=== PATIENT | male | born 1960 | race Caucasian/White ===

== ENCOUNTER 2021-08-28 15:08 | Outpatient (CLI) | payer BC, SELFPAY ==
--- NOTE | ~2021-08-28 | CT_ITS ---
EXAMINATION: CT abdomen pelvis w con DATE: 08/28/2021 15:45 INDICATION: Unspecified abdominal pain. TECHNIQUE: Computed tomography (CT) of the abdomen and pelvis was performed with 100 cc Omnipaque 350 intravenous contrast. The dose-length product was 636.56 mGy-cm. Automated exposure control and iter ative reconstruction technique were employed. COMPARISON: CT dated 09/08/2019. FINDINGS: Lung bases are unremarkable. Heart size is normal. No significant pleural or pericardial ef fusion. No significant vascular abnormality. No lymphadenopathy. The liver, spleen, pancreas, adrenal glands and kidneys are unremarkable. Gallbladder is present. Non obstructive bowel gas pattern. Normal appendix. No abnormal pelvic masses or fluid collections. Moder ate lower lumbar spondylosis. Moderate osteoarthritis of the hips. IMPRESSION: 1. No acute abdominal abnormality. Reviewed, dictated and finalized at location B. TIC FABRICATOR
[2021-08-28 15:33] LABS: Estimated Glomerular Filt Rate > 60
== END 2021-08-28 15:09 | disposition home or self-care (01) ==
LOC: ANHIMG 15:12
PROVIDERS: PCP Family Medicine; Visit Provider Physician Assistant
DX: R10.9 Unspecified abdominal pain (principal)
CPT/HCPCS: 74177; Q9967

== ENCOUNTER 2021-08-28 16:21 | Outpatient (CLI) | payer BC, SELFPAY ==
[2021-08-28 16:37] LABS: Basophils Percent Auto 0.5 % (0.2-1.2); Eosinophils Absolute Auto 0.2 K/mm3 (0-0.3); Eosinophils Percent Auto 2.7 % (0-4.4); Hematocrit 47.8 % (42.0-52.0); Hemoglobin 16.2 g/dL (14.0-18.0); Immature Granulocyte Absolute 0.02 K/mm3 (0.00-0.031); Immature Granulocyte Percent A 0.3 % (0-0.5); Lymphocytes Absolute Auto 1.76 K/mm3 (0.9-3.2); Lymphocytes Percent Auto 26.5 % (18.3-44.2); Mean Corpuscular HGB Conc 33.9 g/dl (32-36); Mean Corpuscular Hemoglobin 30.8 pg (26-34); Mean Corpuscular Volume 90.9 fl (80-100); Mean Platelet Volume 9.7 fl (7.4-10.4); Monocytes Absolute Auto 0.5 K/mm3 (0.1-0.6); Monocytes Percent Auto 7.4 % (2.6-8.5); Neutrophils Absolute Auto 4.2 K/mm3 (1.3-6.7); Neutrophils Percent Auto 62.6 % (45.5-73.1); Platelet Count Result 226 k/mm3 (150-375); Red Blood Count 5.26 M/mm3 (4.6-6.20); Red Cell Distribution Width 12.1 % (11.5-14.5); White Blood Count 6.6 K/mm3 (4.5-10.0)
[2021-08-28 16:50] LABS: Alanine Aminotransferase 30 U/L (4-50); Albumin Level 4.6 g/dL (3.5-5.1); Alkaline Phosphatase 73 U/L (38-126); Amylase 95 U/L (30-110); Anion Gap 7 mmol/L (8-16); Aspartate Amino Transferase 35 U/L (17-59); Bilirubin,Total 0.7 mg/dL (0.2-1.3); Blood Urea Nitrogen 18 mg/dL (9-20); Calcium 9.4 mg/dL (8.4-10.2); Carbon Dioxide 27 mmol/L (22-30); Chloride 99 mmol/L (98-107); Estimated Glomerular Filt Rate > 60; Glucose 91 mg/dL (65-110); Lipase 68 U/L (23-300); Potassium 4.3 mmol/L (3.4-5.0); Sodium 133 mmol/L (137-145)
== END 2021-08-28 16:22 | disposition home or self-care (01) ==
LOC: ANHLAB 16:23
PROVIDERS: PCP Family Medicine; Visit Provider Physician Assistant
DX: R10.9 Unspecified abdominal pain (principal)
CPT/HCPCS: 36415; 80053; 82150; 83690; 85025

== ENCOUNTER 2024-11-08 12:30 | Outpatient (CLI) | payer BC, SELFPAY ==
--- OUTSIDE RECORDS SUMMARY | 2024-11-08 12:33 | XMS_ITS | Patient Health Summary ---
Author Organization [facility] Address [address] [place] [address] Care Team Providers Care Mental Health Practitioner Name Role Phone Provider, No Pcp Primary Care Provider Unavailab le Note from [facility],non-owned Affiliates and Associated Physician Practices is amultiple site organization consisting of ambulatory clinics and hospital sitesin [place], [place], [place] and [place]. This disclosure is being madepursuant to the Care Everywhere program and may not contain all information available regarding this patient. Last updated 18.[facility] Allergies No known active allergies Medications * Be aware that medications may not be up to date on this document. Alwaysverify current medications with the patient. * diclofenac sodium EC (Voltaren) 75 MG tablet(Started 07/03/2024) Take 1 tablet by mouth twice daily 5 refills by 07/03/2025 * aspirin EC (Ecotrin) 81 MG tablet Take 1 (one) tablet by mouth once daily * multivitamin daily tablet Take 1 (one) tablet by mouth daily with food Active Problems Problem Noted Date Diagnosed Date Loose right total knee arthroplasty 10/02/2024 Presence of both artificial knee joints 01/26/20 24 Primary osteoarthritis of both knees 08/04/2022 Social History Tobacco Use Types Packs/Day Years Used Date Smoking Tobacco: Never Smokeless Tobacco: Never Tobacco Cessation:Counseling Given: Not Answered Alcohol Use Standard Drinks/Week Comments Yes 0 (1 standard drink = 0.6 oz pur e alcohol) casual drinker OASIS D0700: Social Isolation Answer Da te Recorded Frequency of experiencing loneliness or isolatio n Never 09/23/2023 OASIS A1250: Transportation Answer Date Recorded Lack of Transportation (Medical) No 09/23/2023 Lack of Transportation (Non-Medical) No 09/23/2023 Patient Unable or Declines to Respond No 09/23/2023 OASIS B1300: Health Literacy Answer Bi e Recorded Frequency of needing help to read materials from doctor or pharmacy Never 09/23/2023 AUDIT-C Answer Date Recorded Q1: How often do you have a drink containing alc ohol? 2-4 times a month 08/30/2023 Q2: How many drinks containi ng alcohol do you have on a typical day when you are drinking? 3 or 4 08/30/2023 Q3: How often do you have si x or more drinks on one occasion? Never 08/30/2023 Overall Financial Resource Strain (CARDIA) Answe r Date Recorded How hard is it for you to pa y for the very basics like food, housing, medical care, and heating? Not hard at all 08/31/2023 PHQ-2 Answer Date Recorded Patient Health Questionnaire-2 Score 3 09/15/2024 [facility] - Occupational Stress Questionnaire Answer Date Recorded Do you feel stress - tense, restless, nervous, or anxious, or unable to sleep at night because your mind is troubled all the time - these days? Not at all 08/31/2023 Hunger Vital Sign Answer Date Recorded Within the past 12 months, y ou worried that your food would run out before you got the money to buy more. Never true 08/31/20 Within the past 12 months, t he food you bought just didn't last and you didn't have money to get more. Never true 08/31/2023 PRAPARE - Transportation Answer Date Re corded In the past 12 months, has l ack of transportation kept you from medical appointments or from getting medications? No 01/2023 In the past 12 months, has l ack of transportation kept you from meetings, work, or from getting things needed for daily living? No 08/31/2023 Housing Stability Vital Sign Answer Bi e Recorded In the last 12 months, was t here a time when you were not able to pay the mortgage or rent on time? No 08/31/2023 In the last 12 months, how many places have you lived? 1 08/31/2023 In the last 12 months, was t here a time when you did not have a steady place to sleep or slept in a longterm (including now)? No 08/31/2023 Sex and Gender Information Value Date Recorded Sex Assigned at Not on file Gender Identity Not on file Sexual Orientation Not on file Last Filed Vital Signs Vital Sign Reading Time Taken Comments Blood Pressure 145/89 10/10/2024 10:52 AM EXERCISE RIDER Pulse 78 10/10/2024 10:45 AM EXERCISE RIDER Temperature 36.9 C (98.4 F) 10/10/2024 10:39 AM EXERCISE RIDER Respiratory Rate 16 09/23/2023 9:02 AM EXERCISE RIDER Oxygen Saturation 98% 10/10/2024 10:45 AM EXERCISE RIDER Inhaled Oxygen Concentration - - Weight 99.3 kg (219 lb) 10/10/2024 10:39 AM EXERCISE RIDER Height 181.6 cm (5' 11.5 ) 10/10/2024 10:[address] Body Mass Index 30.12 10/10/2024 10:39 AM EXERCISE RIDER Medical Devices Implanted Type Area Museum Director Device Identifier Shelf Expiration Date Model / Serial / Lot Tray Tib 79mm Kn Cocr I Beam Implanted:Qty: 1 on 04/05/2023 by Alvin Solis MD at [facility] Left: Knee [employer] 02/02/2033 [id number] / / [id number] Cmpnt Fem Kn Lt Cr Cmnt Prm Vngrd Intlk Implanted:Qty: 1 on 04/05/2023 by Alvin Solis MD at [facility] Left: Knee [employer] 10/24/2032 [id number] / / [id number] Cmpnt Ptlr Std 31mm 3 Pg Kn Ser A Implanted:Qty: 1 on 04/05/2023 by Alvin Solis MD at [facility] Left: Knee [employer] 01/08/2024 [id number] / / [id number] Cmnt Bone Plc R 40gm Grn Implanted:Qty: 2 on 04/05/2023 by Alvin Solis MD at [facility] Left: Knee [employer] 08/26/2025 [id number] / / [id number] Brng [id number] Vngrd Arcm Kn Ant Stab Implanted:Qty: 1 on 04/05/2023 by Alvin Solis MD at [facility] Left: Knee [employer] 03/11/2028 [id number] / / [id number] Brng [id number] Vngrd Arcm Kn Ant Stab Implanted:Qty: 1 on 08/30/2023 by Alvin Solis MD at [facility] Right: Knee [employer] 06/27/2028 [id number] / / [id number] Cmnt Bone Plc R 40gm Grn Implanted:Qty: 2 on 08/30/2023 by Alvin Solis MD at [facility] Right: Knee [employer] 11/24/2025 [id number] / / [id number] Cmpnt Fem Kn Rt Cr Cmnt Prm Vngrd Intlk 75 Mm Implanted:Qty: 1 on 08/30/2023 by Alvin Solis MD at [facility] Right: Knee [employer] 02/11/2033 [id number] / / [id number] Tray Tib 79mm Kn Cocr I Beam Implanted:Qty: 1 on 08/30/2023 by Alvin Solis MD at [facility] Right: Knee [employer] 06/11/2033 [id number] / / [id number] Cmpnt Ptlr Std 31mm 3 Pg Kn Ser A Implanted:Qty: 1 on 08/30/2023 by Alvin Solis MD at [facility] Right: Knee [employer] 06/22/2028 [id number] / / [id number] Procedures * CBC W AUTO DIFFERENTIAL(Performed 10/10/2024) Performed for Preoperative examination * COMPREHENSIVE METABOLIC PANEL(Performed 10/10/2024) Performed for Preoperative examination * ERYTHROCYTE SEDIMENTATION RATE(Performed 09/16/2024) Performed for Presence of both artificial knee joints * C-REACTIVE PROTEIN(Performed 09/16/2024) Performed for Presence of both artificial knee joints * XR KNEE BILAT 3VW(Performed 09/15/2024) Performed for Presence of both artificial knee joints * XR KNEE RIGHT 3VW(Performed 10/25/2023) Performed for Aftercare following right knee joint replacement surgery * XR KNEE LEFT 3VW(Performed 09/28/2023) Performed for Postoperative pain * WA TOTAL KNEE REPLACEMENT(Performed 08/30/2023) * CBC W AUTO DIFFERENTIAL(Performed 07/28/2023) Performed for Preop examination * XR KNEE LEFT 3VW(Performed 05/11/2023) Performed for Aftercare following left knee joint replacement surgery * NEURAXIAL BLOCK(Performed 04/05/2023) * WA TOTAL KNEE REPLACEMENT(Performed 04/05/2023) * CBC W AUTO DIFFERENTIAL(Performed 03/05/2023) Performed for Preoperative examination * COMPREHENSIVE METABOLIC PANEL(Performed 03/05/2023) Performed for Preoperative examination * XR KNEE BILAT 3VW(Performed 08/03/2022) Performed for Pain in both knees, unspecified chronicity Results * CBC W AUTO DIFFERENTIAL (10/10/2024 10:38 AM EXERCISE RIDER) Only the most recent of3 resultswithin the time period is included. WBC 6.9 4.0 - 10.7 x10E9/L 10/10/2024 10:52 AM EXERCISE RIDER [facility] RBC Count 4.86 4.30 - 5.80 x10E12/L 10/10/2024 10:52 AM EXERC[facility] R[facility]ER [facility] Hemoglobin 14.5 13.3 - 17.5 g/dL 10/10/2024 10:52 AM EX[facility]ER [facility] Hematocrit 43.9 38.7 - 51.1 % 10/10/2024 10:52 AM EXERC[facility] R[facility]ER [facility] MCV 90.3 80.0 - 98.0 fL 10/10/2024 10:52 AM EXERC[facility] R[facility]ER [facility] MCH 29.8 26.7 - 33.6 pg 10/10/2024 10:52 AM EXERC[facility] R[facility]ER [facility] MCHC 33.0 31.7 - 36.3 g/dL 10/10/2024 10:52 AM EXERCISE RIDER [facility] RDW-CV 12.0 11.3 - 14.8 % 10/10/2024 10:52 AM EXERC[facility] RIDER [facility] Platelet Count 259 150 - 420 x10E9/L 10/10/2024 10:52 AM EXERC[facility] RIDER [facility] MPV 9.8 7.8 - 11.4 fL 10/10/2024 10:[address] [facility] Neutrophil % 64.0 41.0 - 74.0 % 10/10/2024 10:[address] [facility] Lymphocyte % 25.2 17.0 - 47.0 % 10/10/2024 10:[address] [facility] Monocyte % 8.2 3.0 - 11.0 % 10/10/2024 10:[address] [facility] Eosinophil % 1.7 0.0 - 7.0 % 10/10/2024 10:[address] [facility] Basophil % 0.6 0.0 - 1.6 % 10/10/2024 10:[address] [facility] Immature Granulocytes % 0.3 0.0 - 1.0 % 10/10/2024 10:[address] [facility] Neutrophil Absolute 4.44 1.60 - 7.50 x10E9/L 10/10/2024 10:[address] [facility] Lymphocyte Absolute 1.75 1.00 - 4.40 x10E9/L 10/10/2024 10:[address] [facility] Monocyte Absolute 0.57 0.15 - 1.00 x10E9/L 10/10/2024 10:[address] [facility] Eosinophil Absolute 0.12 0.00 - 0.60 x10E9/L 10/10/2024 10:[address] [facility] Basophil Absolute 0.04 0.00 - 0.13 x10E9/L 10/10/2024 10:[address] [facility] Blood BLOOD SPECIMEN / Unknown Venipuncture / Unknown 10/10/2024 10:38 AM [facility] 10/10/2024 10:47 AM [facility] Aaron Yarbrough AUTOMOTIVE SALES MANAGER-STRAIGHTEDGE MACHINE OPERATOR HELPER LAB - HEMATOLOGY ORDERABLES [facility] [address] [place] [address] * (ABNORMAL) COMPREHENSIVE METABOLIC PANEL (10/10/2024 10:38 AM [facility]) Only the most recent of2 resultswithin the time period is included. [facility] Glucose 97 70 - 99 mg/dL 10/10/2024 11:[address] [facility] Sodium 140 136 - 145 mmol/L 10/10/2024 11:[address] [facility] Potassium 4.4 3.5 - 5.1 mmol/L 10/10/2024 11:[address] [facility] Chloride 108(H) 98 - 107 mmol/L 10/10/2024 11:[address] [facility] CO2 26 22 - 29 mmol/L 10/10/2024 11:[address] [facility] Calcium 9.2 8.4 - 10.4 mg/dL 10/10/2024 11:[address] [facility] Anion Gap 6 6 - 16 mmol/L 10/10/2024 11:[address] [facility] BUN 16 7 - 26 mg/dL 10/10/2024 11:[address] [facility] Creatinine 0.93 0.72 - 1.25 mg/dL 10/10/2024 11:[address] [facility] Alkaline Phosphatase 95 40 - 150 U/L 10/10/2024 11:[address] [facility] ALT 16 0 - 55 U/L 10/10/2024 11:[address] [facility] AST 19 5 - 34 U/L 10/10/2024 11:[address] [facility] Protein Total 7.2 6.4 - 8.3 gm/dL 10/10/2024 11:[address] [facility] Albumin 3.8 3.4 - 5.0 gm/dL 10/10/2024 11:[address] [facility] Bilirubin Total 0.5 0.2 - 1.2 mg/dL 10/10/2024 11:[address] [facility] eGFR by CKD-EPI >90 >=90 mL/min/1.7 3 m2 10/10/2024 11:[address] [facility] Blood BLOOD SPECIMEN / Unknown Venipuncture / Unknown 10/10/2024 10:38 AM [facility] 10/10/2024 10:47 AM [facility] Aaron Yarbrough AUTOMOTIVE SALES MANAGER-STRAIGHTEDGE MACHINE OPERATOR HELPER LAB - CHEMISTRY ORDERABLES [facility] [address] [place] [address] * C-REACTIVE PROTEIN (09/16/2024 10:28 AM EXERCISE RIDER) C-Reactive Protein 2 0 - 10 mg/L [facility] ACCOUNT BILL Blood BLOOD SPECIMEN / Unknown 09/16/2024 10:28 AM EXERCISE RIDER 09/16/2024 Narrative [facility] ACCOUNT BILL - 09/17/2024 7:05 AM EXERCISE RIDER Performed at: - [address] [id number] [employer] Novelty: Bladimir Keys PhD, Phone: [phone] Alvin Solis MD LAB - CHEMISTRY ORDE RABLES Performing Organization Address [facility] Co de Phone Number [facility] ACCOUNT BILL [address] [place] [address] * ERYTHROCYTE SEDIMENTATION RATE (09/16/2024 10:28 AM EXERCISE RIDER) Erythrocyte Sedimentation Rate Westergren 11 0 - 30 mm/hr [facility] ACCOUNT BILL Blood BLOOD SPECIMEN / Unknown 09/16/2024 10:28 AM EXERCISE RIDER 09/16/2024 Narrative [facility] ACCOUNT BILL - 09/17/2024 7:05 AM EXERCISE RIDER Performed at: [facility] [id number] [employer]: Bladimir Keys PhD, Phone: [phone] Alvin Solis MD LAB - HEMATOLOGY ORD ERABLES Performing Organization Address City/[facility]/ZIP Co de Phone Number [facility] ACCOUNT BILL [address] [place] [address] * XR Knee Bilat 3Vw (09/15/2024 12:03 PM EXERCISE RIDER) Only the most recent of2 resultswithin the time period is included. Narrative [facility] [address] - 09/15/2024 12:03 PM EXERCISE RIDER Please see progress note in Epic for results. Alvin Solis MD DIAGNOSTIC IMAGING O RDERABLES Performing Organization Address City/[facility]/ZIP Co de Phone Number [facility] [address] * XR KNEE RIGHT 3VW (10/25/2023 9:56 AM EXERCISE RIDER) Narrative [facility] [address] - 10/25/2023 9:56 AM EXERCISE RIDER Please see progress note in Epic for results. Jensen ARREOLA C IMAGING ORDERABLES Performing Organization Address [facility] Co de Phone Number [facility] [address] * XR KNEE LEFT 3VW (09/28/2023 11:18 AM EXERCISE RIDER) Only the most recent of2 resultswithin the time period is included. Narrative [facility] [address] - 09/28/2023 11:18 AM EXERCISE RIDER Please see progress note in Epic for results. Alvin Solis MD DIAGNOSTIC IMAGING O RDAGUSTÍN Performing Organization Address [facility] Co de Phone Number [facility] [address] * Neuraxial Block (04/05/2023 8:22 AM CDT) Narrative Baron Daniel MD - 04/05/2023 8:22 AM CDT Marquis Espana APRN-CRNA 04/05/2023 8:53 AM Neuraxial Block Note Pre-Procedure: Procedure Name: Neuraxial Block Patient Location: OR Monitors: BP and continuous pluse ox Patient Condition: sedated, meaningful contact maintained throughout procedure Procedure: Block Type: Spinal Prep: Betadine Approach: midline Spinal Block: Needle Type: spinal needle Needle Gauge: 25 Needle Length: 90 mm Placement Site: L3-4 Number of Attempts: 2 Degree of difficulty: none Procedure Tolerance: tolerated well Staff: Anesthesia Provider: Marquis Espana APRN-BRYOLOGIST - performed the procedure Baron Daniel MD GENERAL ANESTHESIA O CORTE[facility] Care Teams Mental Health Practitioner Relationship Specialty Start Date End Date Provider, No Pcp PCP - General 10/10/24
--- OUTSIDE RECORDS SUMMARY | 2024-11-08 12:33 | XMS_ITS | Referral Summary ---
Author Organization [facility] Address [address] [place] [address] Care Team Providers Care Wildlife Rehabilitator Name Role Phone Provider, No Pcp Primary Care Provider Unavailab le Source Comments [facility],non-owned Affiliates and Associated Physician Practices is amultiple site organization consisting of ambulatory clinics and hospital sitesin [place], [place], [place] and [place]. This disclosure is being madepursuant to the Care Everywhere program and may not contain all information available regarding this patient. Last updated 18.[facility] Encounters Date Type Department Care Team Description 10/10/2024 Travel 10/10/2024 10:21 AM COOKIE PADDER - 10/10/2024 11:59 PM COOKIE PADDER Hospital [facility] [address] [place] [address] Alvin Solis MD Discharge Disposition: Home or Self Care 10/09/2024 Travel 09/25/2024 Telephone [facility] [id number] [place] [address], [facility] [address] [place] [phone] Alvin Solis MD Surgery Scheduling 09/15/2024 11:55 AM COOKIE PADDER Ancillary Procedure [facility] - Radiology [address] [place] [phone] Alvin Solis MD Presence of both artificial knee joints 09/15/2024 11:30 AM COOKIE PADDER Office Visit [facility] [id number] [place] [address], [address] [place] [phone] Alvin Solis MD 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 Alwaysverify current medications with the patient. Medication Sig Dispensed Refills Start Date End Date Status diclofenac sodium EC (Voltaren) 75 MG tablet Take 1 tablet by mouth twice daily 60 tablet 5 07/03/2024 Active aspirin EC (Ecotrin) 81 MG tablet Take 1 (one) tablet by mouth once daily Active multivitamin daily tablet Take 1 (one) tablet by mouth daily with food Active Active Problems Problem Noted Date Diagnosed Date [...] Recorded Patient Health Questionnaire-2 Score 3 09/15/2024 [facility] Occupat ional Health - Occupational Stress [...] money to buy more. Never true 08/31/20 23 Within the past 12 months, t he [...] place to sleep or slept in a alf (including now)? No 08/31/2023 Sex and Gender Information Value Date Recorded Sex Assigned at Not on file Gender Identity Not on file Sexual Orientation Not on file Last Filed Vital Signs Vital Sign Reading Time Taken Comments Blood Pressure 145/89 10/10/2024 10:52 AM COOKIE PADDER Pulse 78 10/10/2024 10:45 AM COOKIE PADDER Temperature 36.9 C (98.4 F) 10/10/2024 10:39 AM COOKIE PADDER Respiratory Rate 16 09/23/2023 9:02 AM COOKIE PADDER Oxygen Saturation 98% 10/10/2024 10:45 AM COOKIE PADDER Inhaled Oxygen Concentration - - Weight 99.3 kg (219 lb) 10/10/2024 10:39 AM COOKIE PADDER Height 181.6 cm (5' 11.5 ) 10/10/2024 10:[address] Body Mass Index 30.12 10/10/2024 10:39 AM COOKIE PADDER Functional Status Functional Status Response Date of Assess ment Is person deaf or have serious hearing difficult y? No 08/30/2023 Is person blind or have serious difficulty seein g? No 08/30/2023 Does person have serious dif ficulty walking/climbing stairs? No 08/30/2023 Does person have difficulty dressing/bathing? No 08/30/2023 Does person have difficulty doing errands alone? No 08/30/2023 Plan of Treatment Upcoming Encounters Date Type Department Care Team (Latest Contact Info) Description 11/15/2024 11:00 AM COOKIE PADDER Procedure visit [facility] [address] [place] [phone] 11/15/2024 12:08 PM COOKIE PADDER Hospital Encounter [facility] - Perioperative Surgery [address] [place] [address] [place] [address] [address] Surgery General 11/15/2024 12:08 PM COOKIE PADDER - 11/15/2024 3:04 PM COOKIE PADDER Surgery [facility] - Perioperative Surgery [address] [place] [address] [place] [address] [address] [address] RIGHT LIMITRED REVISION TIBIA 12/07/2024 11:40 AM CDT Office Visit [facility] [address] [place] [phone] Eduardo Betancourt PA-C [address] [place] [phone] 12/28/2024 3:30 PM CDT Office Visit [facility] [address] [place] [phone] [place] [address] [address] [address] Scheduled Procedures Name Priority Associated Diagnoses Date/Ti me ARTHROPLASTY TOTAL KNEE REVISION 11/15/2024 12:08 PM [facility] Medical Devices Implanted Type Area Public Relations Consultant Device Identifier Shelf Expiration Date Model / Serial / Lot Tray Tib 79mm Kn Cocr I Beam Implanted:Qty: 1 on 04/05/2023 by Alvin Solis MD at [facility] Left: Knee [employer] 02/02/2033 [id number] / / [id number] Cmpnt Fem Kn Lt Cr Cmnt Prm Vngrd Intlk Implanted:Qty: 1 on 04/05/2023 by Alvin Solis MD at [facility] Left: Knee [employer] 10/24/2032 [id number] / / [id number] Cmpnt Ptlr Std 31mm 3 Pg Kn Ser A Implanted:Qty: 1 on 04/05/2023 by Alvin Solis MD at [facility] Left: Knee [employer] 01/08/2024 [id number] / / [id number] Cmnt Bone Plc R 40gm Grn Implanted:Qty: 2 on 04/05/2023 by Alvin Solis MD at [facility] Left: Knee [employer] 08/26/2025 [id number] / / [id number] Brng 32lom27pw Vngrd Arcm Kn Ant Stab Implanted:Qty: 1 on 04/05/2023 by Alvin Solis MD at [facility] Left: Knee [employer] 03/11/2028 [id number] / / [id number] Brng 90noh83io Vngrd Arcm Kn Ant Stab Implanted:Qty: 1 on 08/30/2023 by Alvin Solis MD at [facility] Right: Knee [employer] 06/27/2028 [id number] / / [id number] Cmnt Bone Plc R 40gm Grn Implanted:Qty: 2 on 08/30/2023 by Alvin Solis MD at [facility] Right: Knee [employer] 11/24/2025 [id number] / / [id number] Cmpnt Fem Kn Rt Cr Cmnt Prm Vngrd Intlk 75 Mm Implanted:Qty: 1 on 08/30/2023 by Alvin Solis MD at [facility] Right: Knee [employer] 02/11/2033 [id number] / / [id number] Tray Tib 79mm Kn Cocr I Beam Implanted:Qty: 1 on 08/30/2023 by Alvin Solis MD at [facility] Right: Knee [employer] 06/11/2033 [id number] / / [id number] Cmpnt Ptlr Std 31mm 3 Pg Kn Ser A Implanted:Qty: 1 on 08/30/2023 by Alvin Solis MD at [facility] Right: Knee [employer] 06/22/2028 [id number] / / [id number] Procedures Procedure Name Priority Date/Time Associated Diagnosis Comments CBC W AUTO DIFFERENTIAL STAT 10/10/2024 10:38 AM COOKIE PADDER Preoperative examination COMPREHENSIVE METABOLIC PANEL STAT 10/10/2024 10:38 AM COOKIE PADDER Preoperative examination ERYTHROCYTE SEDIMENTATION RATE Routine 09/16/2024 10:28 AM COOKIE PADDER Presence of both artificial knee joints C-REACTIVE PROTEIN Routine 09/16/2024 10 :28 AM COOKIE PADDER Presence of both artificial knee joints XR KNEE BILAT 3VW Routine 09/15/2024 12: 03 PM COOKIE PADDER Presence of both artificial knee joints from Last 3 Months Results * CBC W AUTO DIFFERENTIAL (10/10/2024 10:38 AM COOKIE PADDER) WBC 6.9 4.0 - 10.7 x10E9/L 10/10/2024 10:52 AM COOKIE PADDER [facility] RBC Count 4.86 4.30 - 5.80 x10E12/L 10/10/2024 10:52 AM COOKIE PADDER [facility] Hemoglobin 14.5 13.3 - 17.5 g/dL 10/10/2024 10:52 AM COOKIE PADDER [facility] Hematocrit 43.9 38.7 - 51.1 % 10/10/2024 10:52 AM COOKIE PADDER [facility] MCV 90.3 80.0 - 98.0 fL 10/10/2024 10:52 AM [facility] MCH 29.8 26.7 - 33.6 pg 10/10/2024 10:52 AM [facility] MCHC 33.0 31.7 - 36.3 g/dL 10/10/2024 10:52 AM [facility] RDW-CV 12.0 11.3 - 14.8 % 10/10/2024 10:52 AM [facility] Platelet Count 259 150 - 420 x10E9/L 10/10/2024 10:52 AM [facility] MPV 9.8 7.8 - 11.4 fL 10/10/2024 10:52 AM [facility] Neutrophil % 64.0 41.0 - 74.0 % 10/10/2024 10:52 AM [facility] Lymphocyte % 25.2 17.0 - 47.0 % 10/10/2024 10:52 AM [facility] Monocyte % 8.2 3.0 - 11.0 % 10/10/2024 10:52 AM [facility] Eosinophil % 1.7 0.0 - 7.0 % 10/10/2024 10:52 AM [facility] Basophil % 0.6 0.0 - 1.6 % 10/10/2024 10:52 AM [facility] Immature Granulocytes % 0.3 0.0 - 1.0 % 10/10/2024 10:52 AM [facility] Neutrophil Absolute 4.44 1.60 - 7.50 x10E9/L 10/10/2024 10:52 AM [facility] Lymphocyte Absolute 1.75 1.00 - 4.40 x10E9/L 10/10/2024 10:52 AM [facility] Monocyte Absolute 0.57 0.15 - 1.00 x10E9/L 10/10/2024 10:52 AM [facility] Eosinophil Absolute 0.12 0.00 - 0.60 x10E9/L 10/10/2024 10:52 AM [facility] Basophil Absolute 0.04 0.00 - 0.13 x10E9/L 10/10/2024 10:52 AM [facility] Blood BLOOD SPECIMEN / Unknown Venipuncture / Unknown 10/10/2024 10:38 AM [facility] 10/10/2024 10:47 AM [facility] Aaron Yarbrough REGIONAL ENVIRONMENTAL MANAGER-PHOTOGRAPHIC PROCESSOR LAB - HEMATOLOGY ORDERABLES [facility] [address] [place] [address] * (ABNORMAL) COMPREHENSIVE METABOLIC PANEL (10/10/2024 10:38 AM [facility]) Glucose 97 70 - 99 mg/dL 10/10/2024 11:07 AM [facility] Sodium 140 136 - 145 mmol/L 10/10/2024 11:07 AM [facility] Potassium 4.4 3.5 - 5.1 mmol/L 10/10/2024 11:07 AM [facility] Chloride 108(H) 98 - 107 mmol/L 10/10/2024 11:07 AM [facility] CO2 26 22 - 29 mmol/L 10/10/2024 11:07 AM [facility] Calcium 9.2 8.4 - 10.4 mg/dL 10/10/2024 11:07 AM [facility] Anion Gap 6 6 - 16 mmol/L 10/10/2024 11:07 AM [facility] BUN 16 7 - 26 mg/dL 10/10/2024 11:07 AM [facility] Creatinine 0.93 0.72 - 1.25 mg/dL 10/10/2024 11:07 AM [facility] Alkaline Phosphatase 95 40 - 150 U/L 10/10/2024 11:07 AM [facility] ALT 16 0 - 55 U/L 10/10/2024 11:07 AM [facility] AST 19 5 - 34 U/L 10/10/2024 11:07 AM [facility] Protein Total 7.2 6.4 - 8.3 gm/dL 10/10/2024 11:07 AM [facility] Albumin 3.8 3.4 - 5.0 gm/dL 10/10/2024 11:07 AM [facility] Bilirubin Total 0.5 0.2 - 1.2 mg/dL 10/10/2024 11:07 AM [facility] eGFR by CKD-EPI >90 >=90 mL/min/1.7 3 m2 10/10/2024 11:07 AM COOKIE PADDER [facility] Blood BLOOD SPECIMEN / Unknown Venipuncture / Unknown 10/10/2024 10:38 AM COOKIE PADDER 10/10/2024 10:47 AM COOKIE PADDER Aaron Vincent Zenon REGIONAL ENVIRONMENTAL MANAGER-PHOTOGRAPHIC PROCESSOR LAB - CHEMISTRY ORDERABLES [facility] [address] [place] [id number] * C-REACTIVE PROTEIN (09/16/2024 10:28 AM COOKIE PADDER) C-Reactive Protein 2 0 - 10 mg/L [facility] ACCOUNT BILL Blood BLOOD SPECIMEN / Unknown 09/16/2024 10:28 AM COOKIE PADDER 09/16/2024 Narrative [facility] ACCOUNT BILL - 09/17/2024 7:05 AM COOKIE PADDER Performed at: - [facility] [address] [id number] [employer] Associate: Bladimir Keys PhD, Phone: [phone] Alvin Solis MD LAB - CHEMISTRY ORDE SOL Performing Organization Address City/[facility] Co de Phone Number [facility] ACCOUNT BILL [address] [place] [address] * ERYTHROCYTE SEDIMENTATION RATE (09/16/2024 10:28 AM COOKIE PADDER) Erythrocyte Sedimentation Rate Westergren 11 0 - 30 mm/hr [facility] ACCOUNT BILL Blood BLOOD SPECIMEN / Unknown 09/16/2024 10:28 AM COOKIE PADDER 09/16/2024 Narrative [facility] ACCOUNT BILL - 09/17/2024 7:05 AM COOKIE PADDER Performed at: - [facility] [address] [id number] [employer] Associate: Bladimir Keys PhD, Phone: [phone] Alvin Solis MD LAB - HEMATOLOGY ORD ERABLES [facility] ACCOUNT BILL [address] [place] [address] * XR Knee Bilat 3Vw (09/15/2024 12:03 PM COOKIE PADDER) Narrative [facility] [address] - 09/15/2024 12:03 PM COOKIE PADDER Please see progress note in Epic for results. Alvin Solis MD DIAGNOSTIC IMAGING O RDERABLES [facility] [place] [address] from Last 3 Months Advance Directives * Full Code (Latest Code Status on File) Date Activated Date Inactivated Comments 08/30/2023 12:23 PM 08/31/2023 2:11 PM * Full Code Date Activated Date Inactivated Comments 04/05/2023 11:33 AM 04/06/2023 3:04 PM Care Teams Wildlife Rehabilitator Relationship Specialty Start Date End Date Provider, No Pcp PCP - General 10/10/24
--- OUTSIDE RECORDS SUMMARY | 2024-11-08 12:33 | XMS_ITS | Clinical Summary ---
Author Organization [facility] Address [address] [place] [address] Care Team Providers Care X Ray Operator Name Role Phone Unavailable Primary Care Provider Unavailabl e Social History Tobacco Use Types Packs/Day Years Used Date Smoking Tobacco: Never Assessed Sex and Gender Information Value Date Recorded Sex Assigned at Not on file Legal Sex Male 5:42 PM CDT Gender Identity Not on file Sexual Orientation Not on file Plan of Treatment Health Maintenance Due Date Last Done Comments Colorectal Cancer Screening Colonoscopy (10 Years) 1961 Annual Physical 1964 Hepatitis C 1979 DTaP, Tdap and Td Vaccines ( 1 - Tdap) 1980 Zoster Vaccines (1 of 2) 2011 COVID-19 Vaccine ( - 2023-2 5 season) 2024 Influenza Adult (#1) 2024 RSV Immunization or 60+ Years (1 - 1-dose 75+ series) 2036 Meningococcal B Vaccine Aged Out No l onger eligible based on patient's age to complete this topic Meningococcal Vaccine Aged Out No cyndy chris eligible based on patient's age to complete this topic Pneumococcal Vaccine: Pediat rics (0 to 5 Years) and At-Risk Patients (6 to 64 Years) Aged Out No longer eligible b ased on patient's age to complete this topic RSV Immunizations Under 20 Months Aged Out No longer eligible based on patient's age to complete this topic
--- OUTSIDE RECORDS SUMMARY | 2024-11-08 12:33 | XMS_ITS | Clinical Summary ---
Author Organization [facility] Address [address] [place] [address] Care Team Providers Care Window Shade Estimator Name Role Phone Provider, No Pcp Primary Care Provider Unavailab le Source Comments [facility],non-owned Affiliates and Associated Physician Practices is amultiple site organization consisting of ambulatory clinics and hospital sitesin [place], [place], [place] and [place]. This disclosure is being madepursuant to the Care Everywhere program and may not contain all information available regarding this patient. Last updated [employer] [facility] Allergies No known active allergies Medications * [...] 24 Primary osteoarthritis of both knees 08/04/2022 Encounters Date Type Department Care Team Description 10/10/2024 10:21 AM RESIDENT CARE SUPERVISOR - 10/10/2024 11:59 PM RESIDENT CARE SUPERVISOR Hospital Encounter [facility] [address] [place] [address] Alvin Solis MD Discharge Disposition: Home or Self Care 10/10/2024 Travel 10/09/2024 Travel 09/25/2024 Telephone [facility] [id number] [place] [address], [address] [place] [phone] Alvin Solis MD Surgery Scheduling 09/15/2024 11:55 AM RESIDENT CARE SUPERVISOR Ancillary Procedure [facility] - Radiology [id number] [place] [phone] Alvin Solis MD Presence of both artificial knee joints 09/15/2024 11:30 AM RESIDENT CARE SUPERVISOR Office Visit [facility] [id number] [place] [address], [facility] [address] [place] [phone] Alvin Solis MD 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 No 08/31/2023 Sex and Gender Information Value Date Recorded Sex Assigned at Not on file Gender Identity Not on file Sexual Orientation Not on file Last Filed Vital Signs Vital Sign Reading Time Taken Comments Blood Pressure 145/89 10/10/2024 10:52 AM RESIDENT CARE SUPERVISOR Pulse 78 10/10/2024 10:45 AM RESIDENT CARE SUPERVISOR Temperature 36.9 C (98.4 F) 10/10/2024 10:39 AM RESIDENT CARE SUPERVISOR Respiratory Rate 16 09/23/2023 9:02 AM RESIDENT CARE SUPERVISOR Oxygen Saturation 98% 10/10/2024 10:45 AM RESIDENT CARE SUPERVISOR Inhaled Oxygen Concentration - - Weight 99.3 kg (219 lb) 10/10/2024 10:39 AM RESIDENT CARE SUPERVISOR Height 181.6 cm (5' 11.5 ) 10/10/2024 10:[address] Body Mass Index 30.12 10/10/2024 10:39 AM RESIDENT CARE SUPERVISOR Plan of Treatment Upcoming Encounters Date Type Department Care Team (Latest Contact Info) Description 11/15/2024 11:00 AM RESIDENT CARE SUPERVISOR Procedure visit [facility] [address] [facility] [address], [address] [place] [address] 11/15/2024 12:08 PM RESIDENT CARE SUPERVISOR Hospital Encounter [facility] - Perioperative Surgery [id number] [place] [address] [place] [address] [address] Surgery General 11/15/2024 12:08 PM RESIDENT CARE SUPERVISOR - 11/15/2024 3:04 PM RESIDENT CARE SUPERVISOR Surgery [facility] - Perioperative Surgery [address] [place] [address] [place] [address] [address] RIGHT LIMITRED REVISION TIBIA 12/07/2024 11:40 AM CDT Office Visit [facility] [address] [place] [phone] Eduardo Betancourt PA-C [id number] [place] [phone] 12/28/2024 3:30 PM CDT Office Visit [address], [address] [phone] [place] [address] [address] [address] Scheduled Procedures Name Priority Associated Diagnoses Date/Ti me ARTHROPLASTY TOTAL KNEE REVISION 11/15/2024 12:08 PM RESIDENT CARE SUPERVISOR Health Maintenance Due Date Last Done Comments COLOGUARD (AGES 45-75) - COL ON CA SCREENING 1961 COLON MONITORING 1961 COLONOSCOPY - COLON CA SCREENING 1961 CT COLONOGRAPHY - COLON CA SCREENING 1961 Colorectal Cancer Screening 1961 FIT - COLON CA SCREENING 1961 FLEX SIG - COLON CA SCREENING 1961 LIPID TESTING 1961 HIV SCREENING 1976 HEPATITIS C SCREENING 03/28/1979 DTAP/TDAP/TD VACCINES (1 - Tdap) 1980 PNEUMOCOCCAL VACCINE 50+ (1 of 1 - PCV) 2011 ZOSTER VACCINE (1 of 2) 2011 COVID-19 VACCINE (1 - 2023-2 5 season) 2024 INFLUENZA VACCINE (#1) 2024 DEPRESSION SCREENING 09/27/2024 11/25/2023 Respiratory Syncytial Virus (RSV) Vaccine Pt: or over 60 yrs (1 - 1-dose 75+ series) 2036 HEPATITIS B VACCINE Aged Out No longe r eligible based on patient's age to complete this topic HIB VACCINE Aged Out No longer eligi ble based on patient's age to complete this topic HPV VACCINE Aged Out No longer eligi ble based on patient's age to complete this topic MENINGOCOCCAL (Group B) VACCINE Aged Out No longer eligible based on patient's age to complete this topic MENINGOCOCCAL VACCINE Aged Out No cyndy chris eligible based on patient's age to complete this topic Medical Devices Implanted Type Area Third Steel Pourer Device Identifier Shelf Expiration Date Model / Serial / Lot Tray Tib 79mm Kn Cocr I Beam Implanted:Qty: 1 on 04/05/2023 by Alvin Solis MD at [facility] Left: Knee [employer] 02/02/2033 [id number] / / [id number] Cmpnt Fem Kn Lt Cr Cmnt Prm Vngrd Intlk Implanted:Qty: 1 on 04/05/2023 by Alvin Solis MD at [facility] Left: Knee [employer] 10/24/2032 [id number] / / [id number] Cmpnt Ptlr Std 31mm 3 Pg Kn Ser A Implanted:Qty: 1 on 04/05/2023 by Alvin Solis MD at [facility] Left: Knee [employer] 01/08/2024 [id number] / / [id number] Cmnt Bone Plc R 40gm Grn Implanted:Qty: 2 on 04/05/2023 by Alvin Solis MD at [facility] Left: Knee [employer] 08/26/2025 [id number] / / [id number] Brng [id number] Vngrd Arcm Kn Ant Stab Implanted:Qty: 1 on 04/05/2023 by Alvin Solis MD at [facility] Left: Knee [employer] 03/11/2028 [id number] / / [id number] Brng [id number] Vngrd Arcm Kn Ant Stab Implanted:Qty: 1 on 08/30/2023 by Alvin Solis MD at [facility] Right: Knee [employer] 06/27/2028 [id number] / / [id number] Cmnt Bone Plc R 40gm Grn Implanted:Qty: 2 on 08/30/2023 by Alvin Solis MD at [facility] Right: Knee [employer] 11/24/2025 [id number] / / [id number] Cmpnt Fem Kn Rt Cr Cmnt Prm Vngrd Intlk 75 Mm Implanted:Qty: 1 on 08/30/2023 by Alvin Solis MD at [facility] Right: Knee [employer] 02/11/2033 [id number] / / [id number] Tray Tib 79mm Kn Cocr I Beam Implanted:Qty: 1 on 08/30/2023 by Alvin Solis MD at [facility] Right: Knee [employer] 06/11/2033 [id number] / / [id number] Cmpnt Ptlr Std 31mm 3 Pg Kn Ser A Implanted:Qty: 1 on 08/30/2023 by Alvin Solis MD at [facility] Right: Knee [employer] 06/22/2028 [id number] / / [id number] Procedures Procedure Name Priority Date/Time Associated Diagnosis Comments CBC W AUTO DIFFERENTIAL STAT 10/10/2024 10:38 AM RESIDENT CARE SUPERVISOR Preoperative examination COMPREHENSIVE METABOLIC PANEL STAT 10/10/2024 10:38 AM RESIDENT CARE SUPERVISOR Preoperative examination ERYTHROCYTE SEDIMENTATION RATE Routine 09/16/2024 10:28 AM RESIDENT CARE SUPERVISOR Presence of both artificial knee joints C-REACTIVE PROTEIN Routine 09/16/2024 10 :28 AM RESIDENT CARE SUPERVISOR Presence of both artificial knee joints XR KNEE BILAT 3VW Routine 09/15/2024 12: 03 PM RESIDENT CARE SUPERVISOR Presence of both artificial knee joints from Last 3 Months Results * CBC W AUTO DIFFERENTIAL (10/10/2024 10:38 AM RESIDENT CARE SUPERVISOR) Pathologist [facility] WBC 6.9 4.0 - 10.7 x10E9/L 10/10/2024 10:52 AM RESIDENT CARE SUPERVISOR [facility] RBC Count 4.86 4.30 - 5.80 x10E12/L 10/10/2024 10:52 AM [facility] Hemoglobin 14.5 13.3 - 17.5 g/dL 10/10/2024 10:52 AM [facility] Hematocrit 43.9 38.7 - 51.1 % 10/10/2024 10:52 AM [facility] MCV 90.3 80.0 - 98.0 fL 10/10/2024 10:52 AM [facility] MCH 29.8 26.7 - 33.6 pg 10/10/2024 10:52 AM [facility] MCHC 33.0 31.7 - 36.3 g/dL 10/10/2024 10:52 AM [facility] RDW-CV 12.0 11.3 - 14.8 % 10/10/2024 10:52 AM [facility] Platelet Count 259 150 - 420 x10E9/L 10/10/2024 10:52 AM RESIDENT CARE SUPERVISOR [facility] MPV 9.8 7.8 - 11.4 fL 10/10/2024 10:52 AM RESIDENT CARE SUPERVISOR [facility] Neutrophil % 64.0 41.0 - 74.0 % 10/10/2024 10:52 AM RESIDENT CARE SUPERVISOR [facility] Lymphocyte % 25.2 17.0 - 47.0 % 10/10/2024 10:52 AM [facility] Monocyte % 8.2 3.0 - 11.0 % 10/10/2024 10:52 AM RESIDENT CARE SUPERVISOR [facility] Eosinophil % 1.7 0.0 - 7.0 % 10/10/2024 10:52 AM [facility] Basophil % 0.6 0.0 - 1.6 % 10/10/2024 10:52 AM [facility] Immature Granulocytes % 0.3 0.0 - 1.0 % 10/10/2024 10:52 AM [facility] Neutrophil Absolute 4.44 1.60 - 7.50 x10E9/L 10/10/2024 10:52 AM [facility] Lymphocyte Absolute 1.75 1.00 - 4.40 x10E9/L 10/10/2024 10:52 AM [facility] Monocyte Absolute 0.57 0.15 - 1.00 x10E9/L 10/10/2024 10:52 AM [facility] Eosinophil Absolute 0.12 0.00 - 0.60 x10E9/L 10/10/2024 10:52 AM [facility] Basophil Absolute 0.04 0.00 - 0.13 x10E9/L 10/10/2024 10:52 AM [facility] Blood BLOOD SPECIMEN / Unknown Venipuncture / Unknown 10/10/2024 10:38 AM [facility] 10/10/2024 10:47 AM [facility] Aaron Yarbrough OFFICE TECHNOLOGY INSTRUCTOR-TAKER DOWN LAB - HEMATOLOGY ORDERABLES [facility] [address] [place] [address] * (ABNORMAL) COMPREHENSIVE METABOLIC PANEL (10/10/2024 10:38 AM [facility]) [facility] Glucose 97 70 - 99 mg/dL 10/10/2024 11:07 AM [facility] Sodium 140 136 - 145 mmol/L 10/10/2024 11:07 AM [facility] Potassium 4.4 3.5 - 5.1 mmol/L 10/10/2024 11:07 AM [facility] Chloride 108(H) 98 - 107 mmol/L 10/10/2024 11:07 AM [facility] CO2 26 22 - 29 mmol/L 10/10/2024 11:07 AM [facility] Calcium 9.2 8.4 - 10.4 mg/dL 10/10/2024 11:07 AM [facility] Anion Gap 6 6 - 16 mmol/L 10/10/2024 11:07 AM [facility] BUN 16 7 - 26 mg/dL 10/10/2024 11:07 AM [facility] Creatinine 0.93 0.72 - 1.25 mg/dL 10/10/2024 11:07 AM [facility] Alkaline Phosphatase 95 40 - 150 U/L 10/10/2024 11:07 AM [facility] ALT 16 0 - 55 U/L 10/10/2024 11:07 AM [facility] AST 19 5 - 34 U/L 10/10/2024 11:07 AM [facility] Protein Total 7.2 6.4 - 8.3 gm/dL 10/10/2024 11:07 AM [facility] Albumin 3.8 3.4 - 5.0 gm/dL 10/10/2024 11:07 AM [facility] Bilirubin Total 0.5 0.2 - 1.2 mg/dL 10/10/2024 11:07 AM [facility] eGFR by CKD-EPI >90 >=90 mL/min/1.7 3 m2 10/10/2024 11:07 AM [facility] Blood BLOOD SPECIMEN / Unknown Venipuncture / Unknown 10/10/2024 10:38 AM RESIDENT CARE SUPERVISOR 10/10/2024 10:47 AM RESIDENT CARE SUPERVISOR Aaron Yarbrough OFFICE TECHNOLOGY INSTRUCTOR-TAKER DOWN LAB - CHEMISTRY ORDERABLES [facility] [address] [place], [place] [id number] * C-REACTIVE PROTEIN (09/16/2024 10:28 AM RESIDENT CARE SUPERVISOR) [facility] Signature C-Reactive Protein 2 0 - 10 mg/L [facility] ACCOUNT BILL Blood BLOOD SPECIMEN / Unknown 09/16/2024 10:28 AM RESIDENT CARE SUPERVISOR 09/16/2024 Narrative [facility] ACCOUNT BILL - 09/17/2024 7:05 AM RESIDENT CARE SUPERVISOR Performed at: 01 - [facility] [address] [id number] Pipe Setter: Bladimir Keys PhD, Phone: [phone] Alvin Solis MD LAB - CHEMISTRY EMETERIO HORTON [facility] ACCOUNT BILL [address] [place] [address] * ERYTHROCYTE SEDIMENTATION RATE (09/16/2024 10:28 AM RESIDENT CARE SUPERVISOR) Erythrocyte Sedimentation Rate Westergren 11 0 - 30 mm/hr [facility] ACCOUNT BILL Blood BLOOD SPECIMEN / Unknown 09/16/2024 10:28 AM RESIDENT CARE SUPERVISOR 09/16/2024 Narrative [facility] ACCOUNT BILL - 09/17/2024 7:05 AM RESIDENT CARE SUPERVISOR Performed at: 01 - [facility] [address] [id number] Pipe Setter: Bladimir Keys PhD, Phone: [phone] Alvin Solis MD LAB - HEMATOLOGY ORD ERABLES Performing Organization Address City/[facility]/ZIP Co de Phone Number [facility] ACCOUNT BILL [address] [place] [address] * XR Knee Bilat 3Vw (09/15/2024 12:03 PM RESIDENT CARE SUPERVISOR) Narrative [facility] [address] - 09/15/2024 12:03 PM RESIDENT CARE SUPERVISOR Please see progress note in Epic for results. Alvin Solis MD DIAGNOSTIC IMAGING O RDERABLES [facility] [address] from Last 3 Months Advance Directives * Full Code (Latest Code Status on File) Date Activated Date Inactivated Comments 08/30/2023 12:23 PM 08/31/2023 2:11 PM * Full Code Date Activated Date Inactivated Comments 04/05/2023 11:33 AM 04/06/2023 3:04 PM Care Teams Window Shade Estimator Relationship Specialty Start Date End Date Provider, No Pcp PCP - General 10/10/24
--- NOTE | 2024-11-08 12:34 | ECG_ITS ---
Test Date: 2024-11-08 12:45:36 Measurements Intervals [place] Rate: 80 P: 40 WI: 159 QRS: 45 QRSD: 101 T: 26 QT: 350 QTc: 404 Interpretive Statements SINUS RHYTHM BASELINE ARTIFACT- I, III, AVL, AVF NORMAL ECG No previous ECG available for comparison Electronically Signed On 11-08-2024 13:21:15 ANALYTICAL TECH by Mando Ellsworth D.O.
== END 2024-11-08 12:31 | disposition home or self-care (01) ==
LOC: ANHCARD 12:31
PROVIDERS: PCP Family Medicine; Visit Provider Family Medicine
DX: Z01.810 Encounter for preprocedural cardiovascular examination (principal)
CPT/HCPCS: 93005